=== PATIENT | female | born 1990 | race Caucasian/White ===

== ENCOUNTER 2023-08-26 08:27 | Emergency (ER) | payer MEDICAID ==
[~2023-08-26] VITALS: Ht 165.1 cm; Wt 59.8 kg
[2023-08-26 13:05] VITALS: BP 107/66; PULSE 75; RESP 16; TEMP 97.9; O2SAT 99
== END 2023-08-26 16:34 | disposition home or self-care (01) ==
LOC: ER 08:28
DX: F51.3 Sleepwalking [somnambulism] (principal); Z88.2 Allergy status to sulfonamides; Z88.5 Allergy status to narcotic agent
CPT/HCPCS: 99281